=== PATIENT | female | born 1990 | race Caucasian/White ===

== ENCOUNTER → 2016-12-05 | Emergency (ER) | payer BC, OTHER ==
[2016-12-05 22:26] VITALS: TEMP 98.2; BMI 26.6
--- NOTE | 2016-12-06 00:11 | PDOC ---
History of Present Illness - History of Present Illness Initial Comments: 12/06/16 00:22 Patient is a 26 year old female with significant medical hx of sinusitis who is presenting to the ED with two days of chest pain and two weeks of sinus congestion, rhinorrhea and productive cough. The patient endorses productive cough with green sputum production and some sore throat. She reports chest pain that began yesterday that feels as though someone is sitting on her chest. She states that her chest pain is aggravated with cough. Denies any fevers, chills, nausea, vomiting, diarrhea, shortness of breath, palpitations, or complaints. Patient denies hx of blood clots, oral contraceptive use, or history of tobacco smoking. <Nivia Holt - Last Filed: 12/06/16 00:31> <Juanjose Bui - Last Filed: 12/06/16 00:50> - General Chief Complaint: Cold Symptoms Stated Complaint: COLD SYMPTOMS Time Seen by Provider: 12/06/16 00:03 Past History <Nivia Holt - Last Filed: 12/06/16 00:31> - Past Medical History Other medical history: eczema - Psycho/Social/Smoking Cessation Hx Anxiety: No Suicidal Ideation: No Smoking History: Never smoked Have you smoked in the past 12 months: No Information on smoking cessation initiated: No Hx Alcohol Use: No Drug/Substance Use Hx: No Substance Use Type: None <Juanjose Bui - Last Filed: 12/06/16 00:50> - Past Medical History Allergies/Adverse Reactions: Allergies Allergy/AdvReac Type Severity Reaction Status Date / Time Penicillins Allergy Severe Swelling Verified 12/05/16 22:30 Home Medications: Ambulatory Orders Azithromycin [Zithromax 250mg Tablets -] 250 mg PO UTDICT #6 tab 12/06/16 Review of Systems - Review of Systems Comments:: 12/06/16 00:26 CONSTITUTIONAL: No fever, no chills, no fatigue EYES: No visual changes ENT: Rhinorrhea, nasal congestion, sore throat. No ear pain CARDIOVASCULAR: Chest pain. No palpitations RESPIRATORY: Productive cough. No SOB GI: No abdominal pain, no nausea, no vomiting, no constipation, no diarrhea GENITOURINARY: No dysuria, no frequency, no hematuria MUSKULOSKELETAL: No backpain, no joint pain, no myalgias SKIN: No rash NEURO: No headache <Nivia Holt - Last Filed: 12/06/16 00:31> *Physical Exam - Vital Signs Last Vital Signs Temp Pulse Resp BP Pulse Ox 98.2 F 88 18 120/58 97 12/05/16 22:23 12/05/16 22:23 12/05/16 22:23 12/05/16 22:23 12/05/16 22:23 - Physical Exam Comments: 12/06/16 00:27 CONSTITUTIONAL: Well-appearing; well-nourished; in no apparent distress HEAD: Normocephalic; atraumatic EYES: PERRL; EOM intact ENMT: External appears normal; Erythematous oropharynx with tonsillar exudates; Uvula midline NECK: Supple; non-tender; no cervical lymphadenopathy CARD: Normal S1, S2; no murmurs, rubs, or gallops RESP: Normal chest excursion with respiration; breath sounds clear and equal bilaterally; no wheezes, rhonchi, or rales ABD: Soft, non-distended; non-tender; no palpable organomegaly, no palpable hernias EXT: Normal ROM in all four extremities; non-tender to palpation; distal pulses intact SKIN: Warm, dry, no rash NEURO: No focal neurological deficiencies. <Nivia Holt - Last Filed: 12/06/16 00:31> - Vital Signs Last Vital Signs Temp Pulse Resp BP Pulse Ox 98.2 F 88 18 120/58 97 12/05/16 22:23 12/05/16 22:23 12/05/16 22:23 12/05/16 22:23 12/05/16 22:23 <Juanjose Bui - Last Filed: 12/06/16 00:50> Heart Score/ECG Review #1 12/06/16 00:31 Normal sinus rhythm at 86 bpm Normal ECG <Nivia Holt - Last Filed: 12/06/16 00:31> Medical Decision Making - Medical Decision Making 12/06/16 00:46 Patient is a well-appearing 26-year-old female who presents with sinus congestion, cough productive of yellow sputum, nasal discharge as well as atraumatic, nonpleuritic chest discomfort for the past day and a half. In the ER , patient is awake and alert, afebrile, with normal and stable vital signs. Patient's oropharynx reveals significant erythema and tonsillar exudate. There are no enlarged anterior cervical lymph nodes. There is no evidence of meningismus. Lungs are clear. Serial abdominal exams reveal no focal tenderness. Lower extremity evaluation reveals no edema or asymmetry. EKG shows normal sinus rhythm with a heart rate of 86, without evidence of right sided heart strain or acute ischemia. I do not suspect ACS or PE at this time. Patient satisfies all the perc criteria and her pretest probability is well below 15% by Wells score. Will discharge with Zithromax and PMD follow-up as needed. <Juanjose Bui - Last Filed: 12/06/16 00:50> *DC/Admit/Observation/Transfer - Attestations Scribe Attestion: 12/06/16 00:28 Documentation prepared by Nivia Holt, acting as medical tech for Juanjose Bui MD. <Nivia Holt - Last Filed: 12/06/16 00:31> - Attestations Physician Attestion: 12/06/16 00:46 The documentation was prepared by the scribe under my direct supervision. I have reviewed the documentation which correctly represents the findings, medical decision-making and critical action taken by me. <Juanjose Bui - Last Filed: 12/06/16 00:50> Diagnosis at time of Disposition: Chest pain Qualifiers: Chest pain type: unspecified Qualified Code(s): R07.9 - Chest pain, unspecified Sinusitis Qualifiers: Sinusitis location: frontal Chronicity: acute Recurrence: recurrent Qualified Code(s): J01.11 - Acute recurrent frontal sinusitis - Discharge Dispostion Disposition: HOME Condition at time of disposition: Stable - Referrals Referrals: STAFF,NOT ON [Primary Care Provider] - pmd, as needed [Other] - Patient Instructions Printed Discharge Instructions: DI for Atypical Chest Pain, DI for Sinusitis
[2016-12-06 01:03] VITALS: BP 127/48; PULSE 85
--- NOTE | 2016-12-14 19:22 | EKG ---
Test Reason : Blood Pressure : / mmHG Vent. Rate : 086 BPM Atrial Rate : 086 BPM P-R Int : 140 ms QRS Dur : 082 ms QT Int : 330 ms P-R-T Axes : 000 055 012 degrees QTc Int : 394 ms NORMAL SINUS RHYTHM NORMAL ECG NO PREVIOUS ECGS AVAILABLE Confirmed by ALVA SOSA MD ([id number]) on 12/14/2016 7:22:03 PM Referred By: Confirmed By:ALVA SOSA MD
== END | disposition home or self-care (01) ==
LOC: JER 22:12 → SUPCPDRO 22:12
DX: R07.9 Chest pain, unspecified (principal); J01.10 Acute frontal sinusitis, unspecified
CPT/HCPCS: 93005; 93010; 99282-25